=== PATIENT | female | born 1955 | race Caucasian/White ===

== ENCOUNTER 2016-12-08 23:02 | Observation (INO) | payer OTHER ==
[~2016-12-08] VITALS: Ht 157.5 cm; Wt 114.6 kg
[~2016-12-08 23:02] MED LIST: ADVAIR 250/501 DISK IH; CYMBALTA60 MG PO; IMITREX25 MG PO; LYRICA100 MG PO; METFORMIN HCL500 MG PO; NEXIUM40 MG PO; PRAMIPEXOLE DI1.5 MG PO; SIMVASTATIN40 MG PO; VITAMIN B12-FO1 EACH PO; VITAMIN D2000 INTUN PO; VITAMIN D2000 UNIT PO; WELLBUTRIN XL150 MG PO
[2016-12-08 23:56] LABS: BASOPHIL COUNT 0.1 K/uL (0-0.1); EOSINOPHIL (%) 4.2 % (0-5); EOSINOPHIL COUNT 0.5 K/uL (0-0.3); HEMATOCRIT 44.7 % (36.0-46.0); IMMATURE GRANULOCYTE (%) 0.3 % (0.0-0.7); INSTRUMENT ABS NEUTROPHIL CT 6.6 K/uL; MCH 28.5 PG (29.0-34.0); MCHC 33.3 G/DL (30.0-36.0); MCV 85.5 FL (83-99); MEAN PLAT.VOLUME 9.9 uM^3 (9.5-12.4); MONOCYTE COUNT 0.7 K/uL (0-0.8); NEUTROPHIL (%) 61.1 % (45-76); NEUTROPHIL COUNT 6.6 K/uL (1.8-6.4); PLATELET COUNT 370 K/uL (156-360); RBC DIS.WIDTH-CV 12.7 % (11.8-14.6); RBC DIS.WIDTH-SD 39.8 % (39-53); RED BLOOD COUNT 5.23 M/uL (3.80-5.20); WHITE BLOOD COUNT 10.8 K/uL (4.1-10.2)
[2016-12-09 00:07] LABS: CHLORIDE 104 mEq/L (99-109); SODIUM 139 mEq/L (136-147)
[2016-12-09 00:09] LABS: GLUCOSE 174 mg/dL (70-99)
[2016-12-09 00:10] LABS: ANION GAP 9 MEQ/L (2-14)
[2016-12-09 00:11] LABS: TOTAL BILIRUBIN 0.3 mg/dL (0.0-1.0)
[2016-12-09 00:12] LABS: ALKALINE PHOSPHATASE 146 IU/L (3-129)
[2016-12-09 00:13] LABS: GFR ESTIMATE (CALCULATED) > 59 mL/min/
[2016-12-09 00:14] LABS: UREA NITROGEN (BUN) 14 mg/dL (9-23)
[2016-12-09 00:22] LABS: TROP-I INTERPRETATION NEGATIVE; TROPONIN-I < 0.01 ng/mL (0.0-0.30)
[2016-12-09 04:57] VITALS: BP 179/75
[2016-12-09 06:57] VITALS: BP 130/62
[2016-12-09 09:40] LABS: HEMATOCRIT 42.4 % (36.0-46.0); MCH 28.2 PG (29.0-34.0); MCHC 32.1 G/DL (30.0-36.0); MCV 87.8 FL (83-99); MEAN PLAT.VOLUME 10.4 uM^3 (9.5-12.4); PLATELET COUNT 321 K/uL (156-360); RBC DIS.WIDTH-CV 12.9 % (11.8-14.6); RBC DIS.WIDTH-SD 41.8 % (39-53); RED BLOOD COUNT 4.83 M/uL (3.80-5.20); WHITE BLOOD COUNT 8.8 K/uL (4.1-10.2)
[2016-12-09 10:02] LABS: TOTAL BILIRUBIN 0.3 mg/dL (0.0-1.0)
[2016-12-09 10:03] LABS: ALKALINE PHOSPHATASE 135 IU/L (3-129)
[2016-12-09 10:06] LABS: DIRECT BILIRUBIN 0.1 mg/dL (0.0-0.3)
[2016-12-09] MEDS ORDERED: XOPENEX HF200 INHALA IH (12:17)
[2016-12-09] MEDS ORDERED: AZITHROMYCIN500 M1 PO (12:17)
[2016-12-09] MEDS ORDERED: SPIRIVA1 INHALATI IH (12:17)
[2016-12-09 12:36] VITALS: BP 131/68
== END 2016-12-09 13:44 | disposition home or self-care (01) ==
LOC: EME 23:02 → EDOF 12-09 03:50 → 5WEST 12-09 04:34
PROVIDERS: Emergency Medicine; Nurse Practitioner Family
DX: J45.901 Unspecified asthma with (acute) exacerbation (principal); J20.9 Acute bronchitis, unspecified; R07.89 Other chest pain; R74.8 Abnormal levels of other serum enzymes; E11.9 Type 2 diabetes mellitus without complications; E66.9 Obesity, unspecified; Z68.42 Body mass index [BMI] 45.0-49.9, adult; M79.7 Fibromyalgia; K21.9 Gastro-esophageal reflux disease without esophagitis; G43.909 Migraine, unspecified, not intractable, without status migrainosus; F32.9 Major depressive disorder, single episode, unspecified; F41.9 Anxiety disorder, unspecified
CPT/HCPCS: 71020; 71275; 80053; 80076; 83880; 84484; 85025; 85027; 87040; 93005; 94640; 94640 76; 99202; 99281; 99285; G0378; G8978 GP CH; G8979 GP CH; G8980 GP CH; J0696; J1650; J1956; J2930; J7030; J7050

== ENCOUNTER 2017-06-19 23:39 | Inpatient (IN) | payer OTHER ==
[~2017-06-19] VITALS: Ht 157.5 cm; Wt 114.9 kg
[~2017-06-19 23:39] MED LIST changes: +AZITHROMYCIN500 M1 PO; +MIRAPEX1 MG PO; +NEXIUM20 MG PO; -NEXIUM40 MG PO; -PRAMIPEXOLE DI1.5 MG PO; +SPIRIVA1 INHALATI IH; +XOPENEX HF200 INHALA IH
[2017-06-20 01:33] LABS: HEMATOCRIT 42.4 % (36.0-46.0); MCH 28.1 PG (29.0-34.0); MCHC 33.3 G/DL (30.0-36.0); MCV 84.6 FL (83-99); PLATELET COUNT 309 K/uL (156-360); RBC DIS.WIDTH-SD 39.8 % (39-53); RED BLOOD COUNT 5.01 M/uL (3.80-5.20); WHITE BLOOD COUNT 12.4 K/uL (4.1-10.2)
[2017-06-20 01:35] LABS: CARBON DIOXIDE (BICARBONATE) 30.6 MEQ/L (20-31)
[2017-06-20 01:42] LABS: CHLORIDE 103 mEq/L (99-109); SODIUM 139 mEq/L (136-147)
[2017-06-20 01:44] LABS: GLUCOSE 211 mg/dL (70-99)
[2017-06-20 01:45] LABS: ANION GAP 11 MEQ/L (2-14)
[2017-06-20 01:46] LABS: TOTAL BILIRUBIN 0.5 mg/dL (0.0-1.0)
[2017-06-20 01:48] LABS: ALKALINE PHOSPHATASE 164 IU/L (3-129); GFR ESTIMATE (CALCULATED) > 59 mL/min/
[2017-06-20 01:49] LABS: UREA NITROGEN (BUN) 13 mg/dL (9-23)
[2017-06-20 01:51] LABS: LIPASE 24 U/L (1.0-51.0)
[2017-06-20 01:57] LABS: TROP-I INTERPRETATION NEGATIVE; TROPONIN-I < 0.01 ng/mL (0.0-0.30)
[2017-06-20] MEDS ORDERED: AMARYL2 MG PO (04:02)
[2017-06-20 05:42] VITALS: BP 139/69
[2017-06-20 06:45] VITALS: BP 130/81
[2017-06-20 12:04] VITALS: BP 134/69
[2017-06-20 16:41] LABS: POINT-OF-CARE METER ID UU14314084; POINT-OF-CARE USER ID STWLMB34
[2017-06-20 17:03] VITALS: BP 158/90
[2017-06-20 20:05] VITALS: BP 131/65
[2017-06-20 21:51] LABS: POINT-OF-CARE METER ID UU14314084
[2017-06-21] VITALS (7 sets, daily range): BP systolic 116–137; BP diastolic 58–71
[2017-06-21 06:34] LABS: HEMATOCRIT 41.9 % (36.0-46.0); MCH 28.1 PG (29.0-34.0); MCHC 33.2 G/DL (30.0-36.0); MCV 84.6 FL (83-99); MEAN PLAT.VOLUME 10.3 uM^3 (9.5-12.4); PLATELET COUNT 331 K/uL (156-360); RED BLOOD COUNT 4.95 M/uL (3.80-5.20); WHITE BLOOD COUNT 16.7 K/uL (4.1-10.2)
[2017-06-21 07:01] LABS: POINT-OF-CARE METER ID UU14162508
[2017-06-21 07:36] LABS: ANION GAP 11 MEQ/L (2-14); CHLORIDE 100 MEQ/L (99-109); GFR ESTIMATE (CALCULATED) > 59 mL/min/; POTASSIUM 4.6 MEQ/L (3.7-5.4); SAMPLE HEMOLYSIS CHECK 0; SAMPLE ICTERIC CHECK 0; SAMPLE LIPEMIA CHECK 0; SODIUM 134 MEQ/L (136-147); UREA NITROGEN (BUN) 13 mg/dL (9-23)
[2017-06-21 07:43] LABS: GLUCOSE 324 mg/dL (70-99)
[2017-06-21 10:50] LABS: POINT-OF-CARE METER ID UU14162508
[2017-06-21] MEDS ORDERED: GABAPENTIN300 MG PO (11:58)
[2017-06-21 16:04] LABS: POINT-OF-CARE METER ID UU14314084
[2017-06-21 21:53] LABS: POINT-OF-CARE METER ID UU14314084
[2017-06-22 04:05] VITALS: BP 125/68
[2017-06-22 07:55] VITALS: BP 143/76
[2017-06-22 08:19] LABS: POINT-OF-CARE METER ID UU14314084
[2017-06-22] MEDS ORDERED: ADVAIR HFA120 INHALA IH (09:43)
[2017-06-22] MEDS ORDERED: LEVAQUIN750 MG PO (09:43)
[2017-06-22] MEDS ORDERED: PREDNISONE10 MG PO (09:44)
[2017-06-22 12:13] LABS: POINT-OF-CARE METER ID UU14314084
== END 2017-06-22 12:14 | disposition home or self-care (01) | DRG 202 ==
LOC: EME 23:39 → 2EAST 06-20 03:35 → EDOF 06-20 03:35 → ENRESERV 06-20 03:43 → 2EAST 06-20 05:20
PROVIDERS: Emergency Medicine; Internal Medicine
DX: J45.901 Unspecified asthma with (acute) exacerbation (principal); J18.9 Pneumonia, unspecified organism; E11.65 Type 2 diabetes mellitus with hyperglycemia; G20 Parkinson's disease; G47.33 Obstructive sleep apnea (adult) (pediatric); G89.29 Other chronic pain; M54.9 Dorsalgia, unspecified; K21.9 Gastro-esophageal reflux disease without esophagitis; K76.0 Fatty (change of) liver, not elsewhere classified; M79.7 Fibromyalgia; F32.9 Major depressive disorder, single episode, unspecified; F41.9 Anxiety disorder, unspecified; G43.909 Migraine, unspecified, not intractable, without status migrainosus; E66.01 Morbid (severe) obesity due to excess calories; Z68.42 Body mass index [BMI] 45.0-49.9, adult
CPT/HCPCS: 71020; 80048; 80053; 82803; 82948; 83605; 83690; 83880; 84484; 85027; 87040; 93005; 94640; 94640 76; 99202; 99281; 99285; J1650; J1815; J1956; J2930; J7512

== ENCOUNTER 2017-08-03 01:34 | Observation (INO) | payer OTHER ==
[~2017-08-03] VITALS: Ht 157.5 cm; Wt 115.1 kg
[~2017-08-03 01:34] MED LIST changes: +ADVAIR HFA120 INHALA IH; +AMARYL2 MG PO; +GABAPENTIN300 MG PO; +LEVAQUIN750 MG PO; +PREDNISONE10 MG PO
[2017-08-03 01:54] LABS: HEMOGLOBIN 14.9 G/DL (11.9-15.5); MCH 29.3 PG (29.0-34.0); MCHC 34.7 G/DL (30.0-36.0); MCV 84.6 FL (83-99); PLATELET COUNT 248 K/uL (156-360); RED BLOOD COUNT 5.08 M/uL (3.80-5.20); WHITE BLOOD COUNT 10.1 K/uL (4.1-10.2)
[2017-08-03 02:03] LABS: CHLORIDE 95 mEq/L (99-109); POTASSIUM 4.2 mEq/L (3.7-5.4); SODIUM 133 mEq/L (136-147)
[2017-08-03 02:08] LABS: CREATININE 1.2 mg/dL (0.6-1.3); GFR ESTIMATE (CALCULATED) 48 mL/min/
[2017-08-03 02:09] LABS: UREA NITROGEN (BUN) 17 mg/dL (9-23)
[2017-08-03 02:14] LABS: TROP-I INTERPRETATION NEGATIVE; TROPONIN-I < 0.01 ng/mL (0.0-0.30)
[2017-08-03 02:24] LABS: GLUCOSE 564 mg/dL (70-99)
[2017-08-03] MEDS ORDERED: ADVAIR 500/501 DISK IH (04:51)
[2017-08-03 05:34] VITALS: BP 140/82
[2017-08-03 07:45] VITALS: BP 135/80
[2017-08-03 10:42] VITALS: BP 139/74
[2017-08-03 11:27] LABS: TROP-I INTERPRETATION NEGATIVE; TROPONIN-I < 0.01 ng/mL (0.0-0.30)
[2017-08-03] MEDS ORDERED: DUONEB 2.5-0.5 M3 ML AEROSOL (12:45)
[2017-08-03 14:02] LABS: TROP-I INTERPRETATION NEGATIVE; TROPONIN-I < 0.01 ng/mL (0.0-0.30)
[2017-08-03 15:43] VITALS: BP 156/89
[2017-08-03] MEDS ORDERED: PREDNISONE20 MG PO (16:07)
[2017-08-03] MEDS ORDERED: AZITHROMYCIN500 M1 PO (16:07)
== END 2017-08-03 18:52 | disposition home or self-care (01) ==
LOC: EME → EDBD 01:34 → EME 01:34 → EDOF 04:17 → ENRESERV 04:28 → 5WEST 05:27
PROVIDERS: Hospitalist; Physician Assistant Medical
DX: J45.901 Unspecified asthma with (acute) exacerbation (principal); J20.9 Acute bronchitis, unspecified; E11.65 Type 2 diabetes mellitus with hyperglycemia; E66.01 Morbid (severe) obesity due to excess calories; Z68.41 Body mass index [BMI] 40.0-44.9, adult; E87.6 Hypokalemia; G20 Parkinson's disease; M79.7 Fibromyalgia; M19.90 Unspecified osteoarthritis, unspecified site; K76.0 Fatty (change of) liver, not elsewhere classified; Z79.84 Long term (current) use of oral hypoglycemic drugs
CPT/HCPCS: 71046; 80048; 82010; 82948; 84484; 85027; 93005; 94640; 99202; 99281; 99285; G0378; J1650; J1815; J2930; J7030; J7512

== ENCOUNTER 2017-08-16 15:24 | Inpatient (IN) | payer OTHER ==
[~2017-08-16] VITALS: Ht 157.5 cm; Wt 110.7 kg
[~2017-08-16 15:24] MED LIST changes: +ADVAIR 500/501 DISK IH; +DUONEB 2.5-0.5 M3 ML AEROSOL; +PREDNISONE20 MG PO
[2017-08-16 16:05] LABS: HEMATOCRIT 56.1 % (36.0-46.0); MCH 28.9 PG (29.0-34.0); MCHC 31.4 G/DL (30.0-36.0); RBC DIS.WIDTH-CV 13.9 % (11.8-14.6); RBC DIS.WIDTH-SD 47.2 % (39-53); RED BLOOD COUNT 6.08 M/uL (3.80-5.20); WHITE BLOOD COUNT 6.2 K/uL (4.1-10.2)
[2017-08-16 16:06] LABS: HEMOGLOBIN 17.6 G/DL (11.9-15.5); MCV 92.3 FL (83-99); PLATELET COUNT 346 K/uL (156-360)
[2017-08-16 16:11] LABS: CHLORIDE 113 mEq/L (99-109); POTASSIUM 4.8 mEq/L (3.7-5.4); SODIUM 143 mEq/L (136-147)
[2017-08-16 16:17] LABS: CREATININE 2.2 mg/dL (0.6-1.3); GFR ESTIMATE (CALCULATED) 24 mL/min/
[2017-08-16 16:18] LABS: UREA NITROGEN (BUN) 20 mg/dL (9-23)
[2017-08-16 16:20] LABS: GLUCOSE 747 mg/dL (70-99)
[2017-08-16] MEDS ORDERED: VENTOLIN HFA18 GM IH (19:52)
[2017-08-16] MEDS ORDERED: OXYCODONE HCL5 MG PO (19:53)
[2017-08-16 21:01] LABS: CHLORIDE 120 mEq/L (99-109); SODIUM 148 mEq/L (136-147)
[2017-08-16 21:08] LABS: UREA NITROGEN (BUN) 17 mg/dL (9-23)
[2017-08-16 21:14] LABS: CREATININE 1.5 mg/dL (0.6-1.3); GFR ESTIMATE (CALCULATED) 37 mL/min/; GLUCOSE 353 mg/dL (70-99); POTASSIUM 3.7 mEq/L (3.7-5.4)
[2017-08-16 22:33] LABS: ALBUMIN 3.9 g/dL (3.2-4.8)
[2017-08-16 22:36] LABS: TOTAL PROTEIN 7.2 g/dL (6.4-8.3)
[2017-08-16 22:38] LABS: TOTAL BILIRUBIN 0.2 mg/dL (0.0-1.0)
[2017-08-16 22:39] LABS: ALKALINE PHOSPHATASE 169 IU/L (3-129)
[2017-08-16 22:41] LABS: AST (GOT) 51 IU/L (2-34); DIRECT BILIRUBIN 0.2 mg/dL (0.0-0.3)
[2017-08-16 22:42] LABS: ALT (GPT) 119 IU/L (3-49)
[2017-08-16 23:13] LABS: APPEARANCE SL.HAZY ((CLEAR)); BILIRUBIN NEGATIVE; BLOOD SMALL; COLOR YELLOW ((YELLOW)); GLUCOSE (STRIP) >=500; KETONES NEGATIVE; LEUKOCYTES TRACE; NITRITE NEGATIVE; PROTEIN (STRIP) 100; SPECIFIC GRAVITY 1.023 (1.000-1.030); UROBILINOGEN 0.2 MG/DL (0.2-1.0)
[2017-08-16 23:31] LABS: BACTERIA 2+ /HPF; EPITHELIAL CELLS 1+ /HPF; MUCUS 1+ /LPF; RED BLOOD CELLS 0-5 /HPF (0-5); UCUL ADDED? YES
[2017-08-16 23:32] LABS: HYALINE CASTS 0-5 /LPF
[2017-08-16 23:59] LABS: C DIFF TOXIN NEGATIVE (NEGATIVE)
[2017-08-17] VITALS (11 sets, daily range): BP systolic 90–152; BP diastolic 44–83
[2017-08-17 01:02] LABS: ALBUMIN 3.4 g/dL (3.2-4.8); CHLORIDE 119 mEq/L (99-109); POTASSIUM 3.6 mEq/L (3.7-5.4); SODIUM 145 mEq/L (136-147)
[2017-08-17 01:03] LABS: MAGNESIUM 2.5 mg/dL (1.3-2.7)
[2017-08-17 01:05] LABS: GLUCOSE 275 mg/dL (70-99); TOTAL PROTEIN 6.5 g/dL (6.4-8.3)
[2017-08-17 01:07] LABS: TOTAL BILIRUBIN 0.2 mg/dL (0.0-1.0)
[2017-08-17 01:08] LABS: ALKALINE PHOSPHATASE 144 IU/L (3-129); PHOSPHORUS 2.9 mg/dL (2.5-4.9)
[2017-08-17 01:09] LABS: CREATININE 1.3 mg/dL (0.6-1.3); GFR ESTIMATE (CALCULATED) 44 mL/min/
[2017-08-17 01:10] LABS: AST (GOT) 56 IU/L (2-34); UREA NITROGEN (BUN) 15 mg/dL (9-23)
[2017-08-17 01:11] LABS: ALT (GPT) 103 IU/L (3-49)
[2017-08-17 07:26] LABS: ALBUMIN 3.1 G/DL (3.2-4.8); ALKALINE PHOSPHATASE 118 IU/L (3-129); ALT (GPT) 76 IU/L (3-49); AST (GOT) 39 IU/L (2-34); CHLORIDE 115 MEQ/L (99-109); CREATININE 1.1 MG/DL (0.6-1.3); GFR ESTIMATE (CALCULATED) 53 mL/min/; MAGNESIUM 2.1 mg/dl (1.3-2.7); PHOSPHORUS 2.9 mg/dL (2.5-4.9); POTASSIUM 3.7 MEQ/L (3.7-5.4); SODIUM 146 MEQ/L (136-147); TOTAL BILIRUBIN 0.4 MG/DL (0.0-1.0); TOTAL PROTEIN 5.2 G/DL (6.4-8.3); UREA NITROGEN (BUN) 12 mg/dL (9-23)
[2017-08-17 07:40] LABS: GLUCOSE 125 mg/dL (70-99)
[2017-08-17 11:07] LABS: HEPATITIS B SURFACE ANTIGEN Nonreactive
[2017-08-17 11:08] LABS: ANTI-HEPATITIS A VIRUS (IGM) Nonreactive; HEPATITIS C ANTIBODY Nonreactive
[2017-08-17 11:10] LABS: ANTI-HEPATITIS B CORE (IGM) Nonreactive
[2017-08-17 16:36] LABS: TROP-I INTERPRETATION NEGATIVE; TROPONIN-I < 0.01 ng/mL (0.0-0.30)
[2017-08-17 22:04] LABS: TROP-I INTERPRETATION NEGATIVE; TROPONIN-I < 0.01 ng/mL (0.0-0.30)
[2017-08-18] VITALS (7 sets, daily range): BP systolic 95–136; BP diastolic 50–63
[2017-08-18 06:07] LABS: HEMATOCRIT 39.2 % (36.0-46.0); MCH 28.6 PG (29.0-34.0); MCHC 32.1 G/DL (30.0-36.0); MCV 88.9 FL (83-99); RBC DIS.WIDTH-CV 13.6 % (11.8-14.6); RBC DIS.WIDTH-SD 44.5 % (39-53); WHITE BLOOD COUNT 9.9 K/uL (4.1-10.2)
[2017-08-18 06:08] LABS: HEMOGLOBIN 12.6 G/DL (11.9-15.5); RED BLOOD COUNT 4.41 M/uL (3.80-5.20)
[2017-08-18 06:19] LABS: TROP-I INTERPRETATION NEGATIVE; TROPONIN-I < 0.01 ng/mL (0.0-0.30)
[2017-08-18 06:42] LABS: CHLORIDE 115 MEQ/L (99-109); CREATININE 0.9 MG/DL (0.6-1.3); GFR ESTIMATE (CALCULATED) > 59 mL/min/; GLUCOSE 121 mg/dL (70-99); POTASSIUM 3.5 MEQ/L (3.7-5.4); SODIUM 147 MEQ/L (136-147); UREA NITROGEN (BUN) 9 mg/dL (9-23)
[2017-08-18 06:49] LABS: PLAT.SUFFICIENCY ADEQUATE
[2017-08-18 06:50] LABS: PLATELET COUNT 220 K/uL (156-360)
[2017-08-19 03:15] VITALS: BP 113/61
[2017-08-19 05:36] LABS: BASOPHIL (%) 0.4 % (0-1); EOSINOPHIL COUNT 0.2 K/uL (0-0.3); HEMATOCRIT 37.7 % (36.0-46.0); HEMOGLOBIN 12.2 G/DL (11.9-15.5); IMMATURE GRANULOCYTE (%) 0.4 % (0.0-0.7); LYMPHOCYTE (%) 33.4 % (15-42); LYMPHOCYTE COUNT 2.9 K/uL (1.0-2.8); MCH 28.5 PG (29.0-34.0); MCHC 32.4 G/DL (30.0-36.0); MCV 88.1 FL (83-99); MONOCYTE (%) 4.9 % (3-12); MONOCYTE COUNT 0.4 K/uL (0-0.8); NEUTROPHIL (%) 58.9 % (45-76); PLATELET COUNT 206 K/uL (156-360); RBC DIS.WIDTH-CV 13.7 % (11.8-14.6); RBC DIS.WIDTH-SD 44.1 % (39-53); RED BLOOD COUNT 4.28 M/uL (3.80-5.20); WHITE BLOOD COUNT 8.5 K/uL (4.1-10.2)
[2017-08-19 06:30] LABS: ALBUMIN 2.8 G/DL (3.2-4.8); ALKALINE PHOSPHATASE 101 IU/L (3-129); ALT (GPT) 46 IU/L (3-49); AST (GOT) 28 IU/L (2-34); CHLORIDE 112 MEQ/L (99-109); CREATININE 0.8 MG/DL (0.6-1.3); GFR ESTIMATE (CALCULATED) > 59 mL/min/; GLUCOSE 121 mg/dL (70-99); POTASSIUM 3.4 MEQ/L (3.7-5.4); SODIUM 148 MEQ/L (136-147); TOTAL BILIRUBIN 0.4 MG/DL (0.0-1.0); TOTAL PROTEIN 5.2 G/DL (6.4-8.3); UREA NITROGEN (BUN) 6 mg/dL (9-23)
[2017-08-19 09:26] VITALS: BP 133/66
[2017-08-19 11:36] VITALS: BP 165/89
[2017-08-19 15:36] VITALS: BP 134/68
== END 2017-08-19 18:04 | disposition home or self-care (01) | DRG 638 ==
LOC: EME 15:24 → EDOF 22:12 → 4EAST 22:12 → ENRESERV 22:16 → 5SOUTH 08-17 01:11 → ENRESERV 08-17 17:21 → 4EAST 08-17 17:42
PROVIDERS: Emergency Medicine; Hospitalist; Internal Medicine; Physician Assistant Medical
DX: E11.00 Type 2 diabetes mellitus with hyperosmolarity without nonketotic hyperglycemic-hyperosmolar coma (NKHHC) (principal); N17.9 Acute kidney failure, unspecified; E11.65 Type 2 diabetes mellitus with hyperglycemia; E87.0 Hyperosmolality and hypernatremia; E86.0 Dehydration; E66.01 Morbid (severe) obesity due to excess calories; Z68.41 Body mass index [BMI] 40.0-44.9, adult; G20 Parkinson's disease; G47.33 Obstructive sleep apnea (adult) (pediatric); M79.7 Fibromyalgia; J45.909 Unspecified asthma, uncomplicated; I48.0 Paroxysmal atrial fibrillation; E87.2 Acidosis; M19.90 Unspecified osteoarthritis, unspecified site; K76.0 Fatty (change of) liver, not elsewhere classified; I27.20 Pulmonary hypertension, unspecified; I08.1 Rheumatic disorders of both mitral and tricuspid valves
CPT/HCPCS: 71046; 80048; 80048 91; 80053; 80074; 80076; 81003; 82010; 82803; 82948; 83036; 83735; 83930; 84100; 84484; 85025; 85027; 87077; 87086; 87186; 87493; 93005; 93306; 94640; 94640 76; 99202; 99281; 99285; J1160; J1650; J1815; J3480; J7030; J7040; J7050